=== PATIENT | female | born 1955 | race Two or more races ===

== ENCOUNTER 2023-09-21 05:00 | Inpatient (IN) | payer MEDICARE, OTHER ==
[~2023-09-21] VITALS: Ht 157.5 cm; Wt 73.5 kg
[2023-09-21 05:30] VITALS: BP 145/67; TEMP 97.9; O2SAT 95
[2023-09-21] MEDS ORDERED: ROPIVACAINE HCL 0.5% 5 MG/ML 30ML VIAL ONE (06:15)
[2023-09-21] MEDS ORDERED: FENTANYL PF 100MCG/2ML AMPUL ONE (06:15)
[2023-09-21] MEDS ORDERED: FAMOTIDINE/PF INJ 20 MG/2 ML VIAL IV ONE (06:16)
[2023-09-21] MEDS ORDERED: KETAMINE HCL (500MG/10ML) 50 MG/ML VIAL ONE (06:16)
[2023-09-21] MEDS ORDERED: MIDAZOLAM HCL 2 MG/2ML VIAL ONE (06:16)
[2023-09-21] MEDS ORDERED: TRANEXAMIC ACID 1,000 MG/10 ML VIAL ONE ×2 (07:11→07:59)
[2023-09-21] MEDS ORDERED: POLYMYXIN B SULFATE 0 UNITS ONE (07:12)
[2023-09-21] MEDS ORDERED: BUPIVACAINE 0.5 % PF 150 MG/30 ML VIAL ONE (07:12)
[2023-09-21 07:30] VITALS: BP 144/58; TEMP 98.1; O2SAT 99
[2023-09-21] MEDS ORDERED: TRANEXAMIC ACID 3,000 MG in SODIUM CHLORIDE IRRIG SOLUTION 70 ML IR ONE (07:30)
[2023-09-21] MEDS ORDERED: MEPERIDINE25 MG SYR 25 MG/ML VIAL ONE (08:47)
[2023-09-21] MEDS ORDERED: CLONIDINE HCL 0.1 MG TABLET PO PRN (09:30)
[2023-09-21] MEDS ORDERED: MAG HYDROX/AL HYDROX/SIMETH 30 ML UDC PO PRN ×2 (09:30→11:00)
[2023-09-21] MEDS ORDERED: MAGNESIUM HYDROXIDE 30 ML UDC PO PRN ×2 (09:30→11:00)
[2023-09-21] MEDS ORDERED: diphenhydrAMINE HCL 25 MG CAPSULE PO PRN (09:30)
[2023-09-21] MEDS ORDERED: ANESTHESIA TRAY IN PYXIS 1 EA TRAY MC ONE (09:42)
[2023-09-21] MEDS ORDERED: DOCUSATE SODIUM 250 MG CAPSULE PO PRN (10:30)
[2023-09-21] MEDS ORDERED: ZOLPIDEM TARTRATE 5 MG TABLET PO PRN (10:30)
[2023-09-21] MEDS ORDERED: ONDANSETRON HCL/PF 4 MG/2 ML VIAL IVP PRN ×2 (10:30→11:00)
[2023-09-21] MEDS ORDERED: IV D5/0.45 NACL 1,000 ML IV PRN (10:30)
[2023-09-21] MEDS ORDERED: BISACODYL SUPP (10 MG) 10 MG/SUPP.RECT SUPP.RECT RC PRN (10:30)
[2023-09-21] MEDS ORDERED: ACETAMINOPHEN 325 MG TABLET PO PRN ×2 (10:30→11:00)
[2023-09-21] MEDS ORDERED: SENNOSIDES 8.6 MG TABLET PO PRN (10:30)
[2023-09-21] MEDS ORDERED: IBUP-1957 PO (10:54)
[2023-09-21] MEDS ORDERED: LISI-768 PO (10:54)
[2023-09-21] MEDS ORDERED: ASPI-1169 PO (10:54)
[2023-09-21] MEDS ORDERED: METF-440 PO (10:54)
[2023-09-21] MEDS ORDERED: ROSU40TA PO (10:54)
[2023-09-21] MEDS ORDERED: DEXTROSE 50%-WATER 50 ML DISP.SYRIN IV PRN (11:00)
[2023-09-21] MEDS ORDERED: HYDROCODONE/APAP 10/325MG TABLET PO PRN (11:00)
[2023-09-21] MEDS ORDERED: Z GUARD REMEDY 4 OZ OINT TP PRN (11:00)
[2023-09-21] MEDS ORDERED: Potassium Chloride 20 MEQ in IV D5/0.45 NACL 1,000 ML IV PRN (11:00)
[2023-09-21] MEDS: HYDROMORPHONE 1 MG/1 ML DISP.SYRIN IV PRN (11:37)
[2023-09-21] MEDS: IV D5/0.45 NACL W/20 MEQ KCL 1L IV SCH ×4 (12:00→13:06)
[2023-09-21] MEDS: INSULIN REGULAR, HUMAN 100 UNIT/ML 3 ML VIAL SQ PRN ×3 (13:08→21:31)
[2023-09-21] MEDS: BLOOD SUGAR DIAGNOSTIC 1 EACH STRIP IN SCH ×3 (13:33→21:28)
[2023-09-21] MEDS: ANCEF 1 GM/50 ML D5W IV SCH ×4 (13:56→21:12)
[2023-09-21 16:00] VITALS: BP 121/52; TEMP 98.2; O2SAT 96
[2023-09-21] MEDS: DOCUSATE SODIUM 100 MG CAPSULE PO SCH (17:08)
[2023-09-21] MEDS: METFORMIN 500 MG TABLET PO SCH (17:08)
[2023-09-21 20:00] VITALS: BP_SYST 137; BP_SYST 95; BP_DIAS 48; BP_DIAS 53; TEMP 98.4; TEMP 98.6; O2SAT 96; O2SAT 97
[2023-09-21] MEDS: FAMOTIDINE (20 MG) 20 MG TABLET PO SCH (20:51)
[2023-09-21] MEDS: oxyCODONE IR immediate release 5 MG PO PRN (20:52)
[2023-09-21] MEDS: ATORVASTATIN 40 MG TABLET PO SCH (21:12)
[2023-09-22] MEDS: oxyCODONE IR immediate release 5 MG PO PRN ×3 (01:33→15:59)
[2023-09-22 07:00] LABS: BASOPHILS % (AUTO) 0.3 % (0.0-2.0); EOSINOPHILS % (AUTO) 0.1 % (0.0-6.0); HEMATOCRIT 35 % (33-45); HEMOGLOBIN 11.5 g/dL (11.5-14.8); MEAN CORPUSCULAR HEMOGLOBIN 29 PG (26.0-33.0); MEAN CORPUSCULAR HGB CONC 33 g/dl (31.0-36.0); MEAN CORPUSCULAR VOLUME 86 fL (82-100); MONOCYTES # (AUTO) 0.6 K/uL (0.1-1.30); MONOCYTES % (AUTO) 5.7 % (2.0-12.0); NEUTROPHILS % (AUTO) 74.9 % (43.0-81.0); PLATELET COUNT (AUTO) 226 K/uL (150-450); RED CELL DISTRIBUTION WIDTH 14.3 % (11.5-15.0); WHITE BLOOD COUNT (AUTO) 10.6 K/uL (4.3-11.0)
[2023-09-22] MEDS: BLOOD SUGAR DIAGNOSTIC 1 EACH STRIP IN SCH ×4 (07:01→21:36)
[2023-09-22] MEDS: INSULIN REGULAR, HUMAN 100 UNIT/ML 3 ML VIAL SQ PRN ×4 (07:02→21:23)
[2023-09-22 07:14] LABS: CREATININE 0.7 mg/dL (0.6-1.3); PHOSPHORUS 3.7 mg/dL (2.5-4.9); POTASSIUM 4.1 mmol/L (3.5-5.1)
[2023-09-22 07:30] VITALS: BP 122/56; TEMP 98.8; O2SAT 94
[2023-09-22] MEDS: ASPIRIN 325 MG TABLET PO SCH (08:06)
[2023-09-22] MEDS: DOCUSATE SODIUM 100 MG CAPSULE PO SCH ×2 (08:06→16:05)
[2023-09-22] MEDS: HYDROMORPHONE 1 MG/1 ML DISP.SYRIN IV PRN ×3 (08:06→21:49)
[2023-09-22] MEDS: PANTOPRAZOLE 40 MG TABLET.DR PO SCH (08:07)
[2023-09-22] MEDS: FAMOTIDINE (20 MG) 20 MG TABLET PO SCH ×2 (08:07→20:13)
[2023-09-22] MEDS: METFORMIN 500 MG TABLET PO SCH ×2 (08:07→16:08)
[2023-09-22] MEDS: ONDANSETRON HCL/PF 4 MG/2 ML VIAL IV PRN ×2 (08:10→17:05)
[2023-09-22] MEDS ORDERED: LISINOPRIL (5MG) 5 MG TABLET PO SCH (09:00)
[2023-09-22] MEDS ORDERED: ASPIRIN 325 MG TABLET PO SCH (09:00)
[2023-09-22] MEDS: LISINOPRIL (10MG) 10 MG TABLET PO SCH (11:00)
[2023-09-22 16:00] VITALS: BP 114/53; TEMP 98.4; O2SAT 99
[2023-09-22 20:19] VITALS: BP 127/68; TEMP 99.9; O2SAT 95
[2023-09-22] MEDS: ATORVASTATIN 40 MG TABLET PO SCH (21:52)
[2023-09-23] MEDS: HYDROMORPHONE 1 MG/1 ML DISP.SYRIN IV PRN ×2 (02:03→06:29)
[2023-09-23] MEDS: BLOOD SUGAR DIAGNOSTIC 1 EACH STRIP IN SCH ×4 (07:24→21:39)
[2023-09-23] MEDS: DOCUSATE SODIUM 100 MG CAPSULE PO SCH ×2 (08:12→16:06)
[2023-09-23] MEDS: PANTOPRAZOLE 40 MG TABLET.DR PO SCH (08:12)
[2023-09-23] MEDS: METFORMIN 500 MG TABLET PO SCH ×2 (08:12→16:06)
[2023-09-23] MEDS: FAMOTIDINE (20 MG) 20 MG TABLET PO SCH ×2 (08:12→21:03)
[2023-09-23] MEDS: ASPIRIN 325 MG TABLET PO SCH (08:12)
[2023-09-23] MEDS: LISINOPRIL (10MG) 10 MG TABLET PO SCH (08:19)
[2023-09-23 09:13] VITALS: BP 135/63; TEMP 97.5; O2SAT 93
[2023-09-23] MEDS: oxyCODONE IR immediate release 5 MG PO PRN ×2 (11:09→16:24)
[2023-09-23] MEDS: INSULIN REGULAR, HUMAN 100 UNIT/ML 3 ML VIAL SQ PRN ×2 (11:33→17:36)
[2023-09-23 18:41] VITALS: BP 104/61; TEMP 99.7; O2SAT 90
[2023-09-23 19:00] VITALS: BP 109/50; TEMP 98.2; O2SAT 95
[2023-09-23] MEDS: ATORVASTATIN 40 MG TABLET PO SCH (21:03)
[2023-09-24] MEDS: oxyCODONE IR immediate release 5 MG PO PRN (02:21)
[2023-09-24] MEDS: BLOOD SUGAR DIAGNOSTIC 1 EACH STRIP IN SCH ×2 (06:52→11:53)
[2023-09-24 08:00] VITALS: BP 117/59; TEMP 97.3; O2SAT 94
[2023-09-24] MEDS: FAMOTIDINE (20 MG) 20 MG TABLET PO SCH (08:28)
[2023-09-24] MEDS: DOCUSATE SODIUM 100 MG CAPSULE PO SCH (08:28)
[2023-09-24] MEDS: METFORMIN 500 MG TABLET PO SCH (08:28)
[2023-09-24] MEDS: ASPIRIN 325 MG TABLET PO SCH (08:28)
[2023-09-24] MEDS: LISINOPRIL (10MG) 10 MG TABLET PO SCH (08:29)
[2023-09-24 09:00] VITALS: BP 117/59; TEMP 97.3; O2SAT 94
[2023-09-24] MEDS ORDERED: HYDR-3980 PO (09:25)
[2023-09-24] MEDS ORDERED: ASPI-992 PO (09:25)
[2023-09-24] MEDS: INSULIN REGULAR, HUMAN 100 UNIT/ML 3 ML VIAL SQ PRN (12:00)
== END 2023-09-24 16:01 | DRG 470 ==
LOC: DS 05:00 → MED 05:20
PROVIDERS: ADMIT Nurse Practitioner Acute Care; ATTEND Internal Medicine
PROC: 0SRC0J9 Replacement of Right Knee Joint with Synthetic Substitute, Cemented, Open Approach (ICD-10-PCS; principal; 2023-09-21)
DX: M17.11 Unilateral primary osteoarthritis, right knee (principal); E11.9 Type 2 diabetes mellitus without complications; E66.9 Obesity, unspecified; I10 Essential (primary) hypertension; Z79.82 Long term (current) use of aspirin; E78.5 Hyperlipidemia, unspecified; Z90.710 Acquired absence of both cervix and uterus; Z68.29 Body mass index [BMI] 29.0-29.9, adult; Z79.84 Long term (current) use of oral hypoglycemic drugs
CPT/HCPCS: 36415; 80048-TC; 82962-TC; 83735-TC; 84100-TC; 85025-TC; 86850-TC; 87081-TC; 97110-TC; 97116-TC; 97530-TC; 97760-TC; A4217; A4223; C1713; C1776; G0378; J0690; J1100; J1170; J1815; J1885; J2175; J2250; J2405; J2704; J2765; J2795; J3010; J3480; J3490; J7030; J7050; J7060; L1830